=== PATIENT | female | born 1985 | race Caucasian/White ===

== ENCOUNTER → 2023-07-25 11:48 | Outpatient (CLI) | payer OTHER, SELFPAY ==
--- NOTE | ~2023-07-25 | CT_ITS ---
EXAMINATION: CT sinus wo con DATE: 07/25/2023 12:05 INDICATION: Chronic sinusitis TECHNIQUE: Computed tomography (CT) of the paranasal sinuses was performed without contrast. Iterativ e reconstruction technique was employed. Exam dose: 278.24 mGy-cm total exam DLP. COMPARISON: None FINDINGS: There is rightward deviation of the nasal septum. There is intralamellar cell of both middle nasal turbinates. There is symmetric prominent soft tissue swelling of the middle and inferior nasal turbinates. Bilateral Laly cells. The ostiomeatal units are patent bilaterally. The paranasal sinuses and mastoid air cells are normally developed and aerated. Middle and inner ear apparatus appear normal bilaterally. IMPRESSION: Rightward deviation of nasal septum Symmetric bilateral soft tissue swelling of the nasal turbinates and intralamellar cell of both middl e nasal turbinates Bilateral Laly cells Patent ostiomeatal units, nasal sinuses and mastoid air cells Reviewed, dictated and finalized at [facility] Reviewed, dictated and finalized at [facility]. [facility] IMPRESSION: Rightward deviation of nasal septum Symmetric bilateral soft tissue swelling of the nasal turbinates and intralamel lar cell of both middle nasal turbinates Bilateral Laly cells Patent ostiomeatal units, nasal sinuses and mastoid air cells
== END ==
PROVIDERS: PCP Physician Assistant; Visit Provider Physician Assistant
DX: J32.9 Chronic sinusitis, unspecified (principal); J34.2 Deviated nasal septum
CPT/HCPCS: 70486

== ENCOUNTER 2024-05-04 11:39 | Emergency (ER) | payer OTHER, SELFPAY ==
--- NOTE | ~2024-05-04 | XR_ITS ---
XR chest 2V Ordering provider: Nathalie Jules APRN History: 39 years Female with . productive cough, fever, headache, chills . Comparison: None. FINDINGS: MEDIASTINUM: The cardiac silhouette is not enlarged. Prominent juanjose. LUNGS: No , effusions or pneumothorax. Minimal opacification in the left perihilar area is seen which may indicate early pneumonia. Follow-up advised. Possible vague opacity seen in the prevertebral are a inferiorly in the lateral view. Follow-up advised. OTHER: No free air under the diaphragm. IMPRESSION: Highly suggestive left perihilar pneumonia. Follow-up advised. Reviewed, dictated and finalized at [facility].
[2024-05-04 11:47] VITALS: BP 151/86; PULSE 99; RESP 19; TEMP 36.9; O2SAT 99
--- NOTE | 2024-05-04 12:27 | ED.URI ---
HPI - URI/Sore Throat General Chief Complaint: Upper Respiratory Infection Stated Complaint: Cough/Fever Time Seen by Provider: 05/04/24 12:28 Source: patient, RN notes reviewed and old records reviewed Mode of arrival: ambulatory Limitations: no limitations History of Present Illness HPI Narrative: Patient complains of productive cough and back pain that has been present since last , this was 5 days ago. Reports that her son is just getting over pneumonia. She denies any fever, does report some chills and sweats. She is not in any distress at this time, able to speak in complete sentences. Denies injury and trauma, voices no other concerns or complaints at this time Related Data Allergies Allergy/AdvReac Type Severity Reaction Status Date / Time No Known Allergies Allergy Verified 05/04/24 11:43 Review of Systems Review of Systems: All systems reviewed & are unremarkable except as noted in HPI and below Constitutional: Constitutional: Reports as per HPI, Reports no additional constitutional complaints and Reports fatigue ENT: Reports system reviewed and no additional complaints, except as documented Cardiovascular: Cardiovascular: Reports no additional cardiovascular complaints Respiratory: Respiratory: Reports no additional respiratory complaints, Reports chest congestion and Reports cough Gastrointestinal: Gastrointestinal: Reports no additional gastrointestinal complaints [facility] Family History Family History Father CLL (chronic lymphocytic leukemia) Mother Melanoma Grandparent Diabetes mellitus Dementia Multiple sclerosis Social History Social History Smoking status: Never smoker Alcohol intake: never Substance use: never Substance use type: does not use Lack of Transportation: No Lack of Food: Never True Current Housing: I Have Housing Concerned About Future Housing: No Difficulty Paying Gas/Electric Bills: No Difficulty Paying for Meds: No Currently Unemployed: No Education: Bachelor's Degree Difficulty w/ Childcare or Family Care: No Living arrangements: with family Occupation/Education: occupation Gender identity (if verbalized by the patient): Female Sexual Orientation (if Verbalized by the Patient): Straight or Heterosexual Comments At the time of my signature, I reviewed and agree with the nursing past medical, surgical, social, and family history. There is no relevant family history pertinent to the patient complaint. Exam Const: General: cooperative, no acute distress, alert, awake and tired appearing Orientation/consciousness: oriented to person, oriented to place and oriented to time HENMT: Head: normal to inspection Mouth: Yes moist mucous membranes Resp: Effort & Inspection: normal respiratory effort and able to speak in complete sentences Auscultation: clear to auscultation bilaterally, no crackles, no rales, no rhonchi and no wheezes Cardio: Palpation: normal PMI Rate: regular rate Rhythm: regular rhythm Heart sounds: S1 normal heart sound present and S2 normal heart sound present Neuro: General: oriented to person, oriented to place and oriented to time Cranial nerves: Yes CN's II-XII intact bilaterally Psych: Appearance: grossly normal Thought process: Normal thought process present Insight: Good insight present (Psych) Judgement: Good judgement present (Psych) Course Course Level of Care: Express Care Visit Vital Signs Vital signs: Vital Signs Temperature 98.5 F 05/04/24 11:47 Pulse Rate 99 05/04/24 11:47 Respiratory Rate 19 05/04/24 11:47 Blood Pressure 151/86 H 05/04/24 11:47 Pulse Oximetry 99 05/04/24 11:47 Oxygen Delivery Room Air 05/04/24 11:47 Temperature 98.5 F 05/04/24 11:47 Pulse Rate 99 05/04/24 11:47 Respiratory Rate 19 05/04/24 11:47 Blood Pressure 151/86 H 05/04/24 11:
== END 2024-05-04 13:33 | disposition home or self-care (01) ==
PROVIDERS: Emergency Provider Nurse Practitioner Family; PCP Family Medicine
DX: J18.9 Pneumonia, unspecified organism (principal)
CPT/HCPCS: 71046; 99213; G0463

== ENCOUNTER 2024-09-05 10:54 | Emergency (ER) | payer OTHER, SELFPAY ==
[2024-09-05 11:09] VITALS: BP 130/73; PULSE 102; RESP 18; TEMP 37.2; O2SAT 100
--- NOTE | 2024-09-05 11:09 | ED.URI ---
HPI - URI/Sore Throat General Chief Complaint: Upper Respiratory Infection Stated Complaint: Sore Throat/Left Ear Irritation Time Seen by Provider: 09/05/24 11:11 Source: patient and RN notes reviewed Mode of arrival: ambulatory Limitations: no limitations History of Present Illness HPI Narrative: 39-year-old female presents with concern for sore and throat earache for 2 days. Reports her son has strep throat. She denies runny nose, stuffy nose, cough. Denies fever, aches, chills, sweats MD elicited complaint: cough Related Data Allergies Allergy/AdvReac Type Severity Reaction Status Date / Time No Known Allergies Allergy Verified 09/05/24 11:05 Review of Systems Review of Systems: CONSTITUTIONAL: Reports malaise. Chills, sweats, or fever. EYES: Denies visual changes, redness, or discharge. ENT: Denies rhinorrhea, congestion, sinus pain. Reports otalgia and sore throat. CARDIOVASCULAR: Denies chest pain, palpitations, or edema. RESPIRATORY: Denies cough. Denies dyspnea. GASTROINTESTINAL: Denies abdominal pain, nausea, vomiting, diarrhea SKIN: Denies rash or itching. MUSCULOSKELETAL: Denies myalgia. NEUROLOGIC: Denies headache. All systems reviewed & are unremarkable except as noted in HPI and below PMFSH Family History Family History Father CLL (chronic lymphocytic leukemia) Mother Melanoma Grandparent Diabetes mellitus Dementia Multiple sclerosis Social History Social History Smoking status: Never smoker Alcohol intake: never Substance use: never Substance use type: does not use Lack of Transportation: No Lack of Food: Never True Current Housing: I Have Housing Concerned About Future Housing: No Difficulty Paying Gas/Electric Bills: No Difficulty Paying for Meds: No Currently Unemployed: No Education: Bachelor's Degree Difficulty w/ Childcare or Family Care: No Living arrangements: with family Occupation/Education: occupation Gender identity (if verbalized by the patient): Female Sexual Orientation (if Verbalized by the Patient): Straight or Heterosexual Comments At time of signature, agree with nursing past medical, surgical, social and family history. There is no relevant family history pertinent to the presenting complaint Exam Narrative: GENERAL: Well-appearing, well-nourished, and in no acute distress. HEAD: Normocephalic EYES: PERRLA, conjunctivae clear ENT: Nares clear. Mucous membranes moist. TM pearly silverman with dull light reflex bilaterally; no tragal tenderness. Oropharynx erythematous without lesions. Tonsils not enlarged and without exudate, no drooling, no hoarseness, no trismus, uvula midline. NECK: Supple. No lymphadenopathy CHEST: Clear to auscultation, breath sounds equal. No wheezing, rhonchi, rales, or stridor. No respiratory distress, speaks in full sentences. HEART: Regular rate and rhythm. No murmur heard. SKIN: Warm, dry, no rash. NEURO: Alert and oriented x3. PSYCH: Normal mood and affect Course Course Emergency Course: Patient is aware of diagnosis, understands and agrees to treatment plan. Anticipatory guidance given. Patient agrees to follow-up as directed and is aware of reasons to seek care at the emergency department. Portions of this record may have been created with voice recognition software Level of Care: Express Care Visit Vital Signs Vital signs: Reviewed. MDM - URI/Sore Throat MDM Narrative Medical decision making narrative: Differential diagnosis considered: [place] virus, strep pharyngitis, allergic rhinitis, upper respiratory tract infection, sinusitis, rhinosinusitis, nasopharyngitis. viral pharyngitis, otitis media, otitis externa, pneumonia, bronchitis, viral cough syndrome, viral syndrome, and influenza. Exam findings show no acute concerns or changes; patient is non-toxic appearing and is in no distress. Patient is appropriate for outpatient treatment and follow-up. Lab Data Attestation: I reviewed the patient's lab results. Critical Care Time Critical Care Time Critical Care Time: No Discharge Plan Discharge Clinical Impression: Acute streptococcal pharyngitis Patient Disposition: Home, Self-Care Condition: Stable Instructions: Antibiotic Form, Strep Throat (ED) Additional Instructions: -Take the medication as prescribed. Throw away the toothbrush after 24hours of antibiotic. -Eat and drink things that are easy to swallow, like tea or soup, or popsicles to suck on. -Oral rinses such as: Salt water gargles and/or may use topical anesthetic (eg. Chloraseptic spray) or lozenges to relieve dryness or throat pain). -Take Tylenol and ibuprofen as needed for pain and fever as directed. -Frequent hand washing or hand business development coordinator is one of the best ways to prevent spread of infection. -Follow up with primary care provider in 2-3 days if condition is not improving; or seek ER visit if you have trouble breathing, cannot drink enough fluids, have muffled voice, difficulty opening your mouth, or severe swelling. Patient Language: Salvadorean Prescriptions: New penicillin V potassium 500 mg tablet 500 mg PO Q12H 10 Days Qty: 20 0RF Follow-up/Referrals: Wilbert Terrazas MD [Primary Care Provider] - Time of Disposition: 11:21
[2024-09-05 11:18] LABS: EDSTREPNEGPOS1 Positive (Negative)
== END 2024-09-05 11:40 | disposition home or self-care (01) ==
PROVIDERS: Emergency Provider Nurse Practitioner; PCP Family Medicine
DX: J02.0 Streptococcal pharyngitis (principal)
CPT/HCPCS: 87880; 99213; G0463